=== PATIENT | female | born 2000 | race Caucasian/White ===

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

== ENCOUNTER 2018-07-16 13:42 | Emergency (ER) | payer SELFPAY ==
[~2018-07-16] VITALS: Ht 175.3 cm; Wt 142.4 kg
[~2018-07-16 13:42] MED LIST: CYCL-331 PO
[2018-07-16] MEDS ORDERED: IV NORMAL SALINE 1,000ML 1,000 ML IV SCH (13:58)
[2018-07-16] MEDS ORDERED: IBUPROFEN 800 MG TABLET. PO ONE (14:15)
[2018-07-16 14:28] LABS: BASO # 0.1 x10^3/uL (0.0-0.2); BASO % 1 % (0-3); EOS # 0.1 x10^3/uL (0.0-0.7); EOS % 1 % (0-3); HEMATOCRIT 40.7 % (36.0-47.0); HEMOGLOBIN 13.9 g/dL (12.0-15.5); LYMPH # 0.6 x10^3/uL (1.0-4.8); LYMPH % 5 % (24-48); MEAN CORPUSCULAR HEMOGLOBIN 30 pg (25-35); MEAN CORPUSCULAR HGB CONC 34 g/dL (31-37); MEAN CORPUSCULAR VOLUME 88 fL (79-100); MONO # 0.8 x10^3/uL (0.0-1.1); MONO % 7 % (0-9); NEUT % 87 % (31-73); PLATELET COUNT 296 x10^3/uL (140-400); RED BLOOD COUNT 4.65 x10^6/uL (3.50-5.40); RED CELL DISTRIBUTION WIDTH 12.9 % (11.5-14.5); WHITE BLOOD COUNT 12.6 x10^3/uL (4.0-11.0)
--- NOTE | 2018-07-16 14:29 | RAD ---
CHEST PA LATERAL Technique: PA and lateral views of the chest were obtained. Clinical History: SHORT OF BREATH, HX OF ASTHMA, PT SHIELDED Comparison: None. Findings: The heart and pulmonary vessels appear normal. There is low lung volumes causing crowding of pulmonary vasculature. Linear opacities in the left lung base. Impression: Low lung volumes. Left lower lobe infiltrate could be discoid atelectasis or early pneumonia. Electronically signed by: Sunil Faria III, MD (07/16/2018 2:26 PM) [facility]
[2018-07-16] MEDS ORDERED: IV NORMAL SALINE 1,000ML 1,000 ML IV ONE ×2 (14:45)
[2018-07-16] MEDS ORDERED: IV NORMAL SALINE 50ML 50 ML ONE (14:51)
[2018-07-16] MEDS ORDERED: cefTRIAXone SODIUM 1 GM VIAL ONE (14:52)
[2018-07-16 14:53] LABS: INFLUENZA A PATIENT POSITIVE (NEGATIVE); INFLUENZA B PATIENT NEGATIVE (NEGATIVE)
[2018-07-16 15:17] LABS: ALBUMIN 3.3 g/dL (3.4-5.0); ALBUMIN/GLOBULIN RATIO 0.9 (1.0-1.7); CALCIUM 8.2 mg/dL (8.5-10.1); GFR 71.4; POTASSIUM 3.6 mmol/L (3.5-5.1); TOTAL BILIRUBIN 0.7 mg/dL (0.2-1.0); TOTAL PROTEIN 7.1 g/dL (6.4-8.2)
[2018-07-16] MEDS ORDERED: KETOROLAC 30 MG/ML VIAL. IV ONE (15:30)
[2018-07-16] MEDS ORDERED: OSELTAMIVIR 75 MG CAPSULE PO ONE (15:30)
[2018-07-16 16:19] VITALS: BP 100/47
[2018-07-16] MEDS ORDERED: HYDR115S2 PO (16:21)
[2018-07-16] MEDS ORDERED: OSEL75CA PO (16:21)
--- NOTE | 2018-07-16 16:22 | PHYS DOC ---
Past History Past Medical History: Asthma Past Surgical History: No Surgical History Smoking: Non-smoker Alcohol Use: None Drug Use: None Adult General Chief Complaint Chief Complaint: SHORTNESS OF BREATH HPI HPI Patient is a 17 year old female with history of asthma who presents with feeling of fever and shortness of breath. Patient states she had marked cough and generalized weakness yesterday and since this morning had shortness of breath with nonproductive cough and fever as high as 103. Patient complaining of nasal congestion and sore throat and generalized myalgia. Patient denies sick contact. Review of Systems Review of Systems Constitutional: Reports fever and chills Eyes: Denies change in visual acuity, redness, or eye pain [] HENT: Reports nasal congestion and sore throat Respiratory: Reports cough and shortness of breath] Cardiovascular: No additional information not addressed in HPI [] GI: Denies abdominal pain, nausea, vomiting, bloody stools or diarrhea [] : Denies dysuria or hematuria [] Musculoskeletal: Denies back pain or joint pain [] Integument: Denies rash or skin lesions [] Neurologic: Denies headache, focal weakness or sensory changes [] Endocrine: Denies polyuria or polydipsia [] All other systems were reviewed and found to be within normal limits, except as documented in this note. Current Medications Current Medications Current Medications Medications (Trade) Dose Ordered Sig/Blanca Start Time Stop Time Status Last Admin Dose Admin Ceftriaxone Sodium 1 gm/ Sodium Chloride 50 ml @ 100 mls/hr 1X ONCE 07/16/18 15:00 07/16/18 15:01 DC Ceftriaxone Sodium (Rocephin) 1 gm STK-MED ONCE 07/16/18 14:52 07/16/18 15:02 DC Ibuprofen (Motrin) 800 mg 1X ONCE 07/16/18 14:15 07/16/18 14:16 DC 07/16/18 14:24 800 MG Ketorolac Tromethamine (Toradol 30mg Vial) 30 mg 1X ONCE 07/16/18 15:30 07/16/18 15:31 DC 07/16/18 15:26 30 MG Oseltamivir Phosphate (Tamiflu) 75 mg 1X ONCE 07/16/18 15:30 07/16/18 15:31 DC 07/16/18 15:25 75 MG Sodium Chloride 50 ml @ As Directed STK-MED ONCE 07/16/18 14:51 07/16/18 14:52 DC Allergies Allergies Allergies Coded Allergies Type Severity Reaction Last Updated Verified No Known Drug Allergies 03/15/17 No Physical Exam Physical Exam Constitutional: Well developed, well nourished, moderate distress, non-toxic appearance. [] HENT: Normocephalic, atraumatic, bilateral external ears normal, oropharynx dry , pharyngeal erythema no oral exudates, nose normal. [] Eyes: PERRLA, EOMI, conjunctiva normal, no discharge. [] Neck: Normal range of motion, no tenderness, supple, no stridor. [] Cardiovascular: Tachycardia ,no murmur [] Lungs & Thorax: Marked respiratory distress with tachypnea and marked wheezing bilaterally Abdomen: Bowel sounds normal, soft, no tenderness, no masses, no pulsatile masses. [] Skin: Warm, dry, no erythema, no rash. [] Back: No tenderness, no CVA tenderness. [] Extremities: No tenderness, no cyanosis, no clubbing, ROM intact, no edema. [] Neurologic: Alert and oriented X 3, normal motor function, normal sensory function, no focal deficits noted. [] Psychologic: Affect normal, judgement normal, mood normal. [] Current Patient Data Vital Signs Vital Signs Date Time Temp Pulse Resp B/P (MAP) Pulse Ox O2 Delivery O2 Flow Rate FiO2 07/16/18 15:48 110 16 101/58 (72) 98 Nasal Cannula 3.0 07/16/18 14:48 100.9 Lab Results Laboratory Tests Test 07/16/18 13:58 07/16/18 14:27 07/16/18 14:42 White Blood Count 12.6 x10^3/uL (4.0-11.0) H Red Blood Count 4.65 x10^6/uL (3.50-5.40) Hemoglobin 13.9 g/dL (12.0-15.5) Hematocrit 40.7 % (36.0-47.0) Mean Corpuscular Volume 88 fL (79-100) Mean Corpuscular Hemoglobin 30 pg (25-35) Mean Corpuscular Hemoglobin Concent 34 g/dL (31-37) Red Cell Distribution Width 12.9 % (11.5-14.5) Platelet Count 296 x10^3/uL (140-400) Neutrophils (%) (Auto) 87 % (31-73) H Lymphocytes (%) (Auto) 5 % (24-48) L Monocytes (%) (Auto) 7 % (0-9) Eosinophils (%) (Auto) 1 % (0-3) Basophils (%) (Auto) 1 % (0-3) Neutrophils # (Auto) 11.0 x10^3uL (1.8-7.7) H Lymphocytes # (Auto) 0.6 x10^3/uL (1.0-4.8) L Monocytes # (Auto) 0.8 x10^3/uL (0.0-1.1) Eosinophils # (Auto) 0.1 x10^3/uL (0.0-0.7) Basophils # (Auto) 0.1 x10^3/uL (0.0-0.2) Lactic Acid Level 2.1 mmol/L (0.4-2.0) H Influenza Type A (Rapid) Positive (NEGATIVE) Influenza Type B (Rapid) Negative (NEGATIVE) Sodium Level 137 mmol/L (136-145) Potassium Level 3.6 mmol/L (3.5-5.1) Chloride Level 103 mmol/L (98-107) Carbon Dioxide Level 22 mmol/L (21-32) Anion Gap 12 (6-14) Blood Urea Nitrogen 19 mg/dL (7-20) Creatinine 1.0 mg/dL (0.6-1.0) Estimated GFR (Cockcroft-Gault) 71.4 BUN/Creatinine Ratio 19 (6-20) Glucose Level 116 mg/dL (70-99) H Calcium Level 8.2 mg/dL (8.5-10.1) L Total Bilirubin 0.7 mg/dL (0.2-1.0) Aspartate Amino Transferase (AST) 18 U/L (15-37) Alanine Aminotransferase (ALT) 33 U/L (14-59) Alkaline Phosphatase 66 U/L (46-116) Total Protein 7.1 g/dL (6.4-8.2) Albumin 3.3 g/dL (3.4-5.0) L Albumin/Globulin Ratio 0.9 (1.0-1.7) L EKG EKG Chief interpreted by me. EKG at 1353 showed sinus tachycardia at rate of 152, no acute ST-T wave abnormalities. Radiology/Procedures Radiology/Procedures [address] [id number] IMAGING REPORT Signed PATIENT: RICHAR SANTOS ACCOUNT: [id number] : 2000 LOCATION: ER AGE: 17 SEX: F EXAM STATUS: PRE ER ORD. PHYSICIAN: TONJA JOHNSON MD REASON: shortness of breath PROCEDURE: CHEST PA & LATERAL CHEST PA LATERAL Technique: PA and lateral views of the chest were obtained. Clinical History: SHORT OF BREATH, HX OF ASTHMA, PT SHIELDED Comparison: None. Findings: The heart and pulmonary vessels appear normal. There is low lung volumes causing crowding of pulmonary vasculature. Linear opacities in the left lung base. Impression: Low lung volumes. Left lower lobe infiltrate could be discoid atelectasis or early pneumonia. Electronically signed by: Greta Ramirez III, MD (07/16/2018 2:26 PM) [facility] DICTATED AND SIGNED BY: GRETA RAMIREZ III, MD DATE: 07/16/18 [id number] CC: TONJA JOHNSON MD; PCP,NO ~ Course & Med Decision Making Course & Med Decision Making Pertinent Labs and Imaging studies reviewed. (See chart for details) Evaluation of patient in ER showed 17-year-old female patient presented with fever and shortness of breath and sinus tachycardia at 160s. Patient had positive Flu A. patient was treated with IV fluid, Tamiflu, ibuprofen with improvement of tachycardia and fever. Patient had mild elevation of lactic acid at 2.1 related to fever and tachycardia and flu symptoms. Chest x-ray was concern for atelectasis or early pneumonia but because of positive flu antibiotic except for Tamiflu was not given. Patient felt better and ambulated without problem and instructed to follow-up with her primary care physician. Dragon Disclaimer Dragon Disclaimer This electronic medical record was generated, in whole or in part, using a voice recognition dictation system. Departure Departure: Impression: Primary Impression: Influenza A Additional Impressions: Shortness of breath Fever Sinus tachycardia History of asthma Elevated lactic acid level Disposition: HOME, SELF-CARE (at 1618) Condition: IMPROVED Referrals: PCP,NO (PCP) Patient Instructions: Asthma Attacks, Prevention, Fever, Adult, Influenza A ( H1N1), Shortness of Breath Additional Instructions: Drink plenty of liquids Follow-up with your primary care physician in 3-5 days Return to ER if not getting better Alternate Tylenol and ibuprofen every 4 hours for fever and pain Scripts Oseltamivir Phosphate (TAMIFLU) 75 Mg Capsule 1 CAP PO BID for influenza, #10 CAP Prov: TONJA JOHNSON MD 07/16/18 Hydrocodone/Chlorphen P-Stirex (Tussionex Pennkinetic Susp) 115 Ml Gladis.er.12h 5 ML PO BID for cough and congestion, #120 ML Prov: TONJA JOHNSON MD 07/16/18 Critical Care Time Critical care time was 80 minutes exclusive of procedures. Problem Qualifiers Additional Impressions: Fever Fever type: unspecified Qualified Codes: R50.9 - Fever, unspecified TONJA JOHNSON MD Jul 16, 2018 16:22
--- NOTE | 2018-07-19 12:19 | EKG ---
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
== END 2018-07-16 16:35 | disposition home or self-care (01) ==
LOC: ER 13:42
DX: J10.1 Influenza due to other identified influenza virus with other respiratory manifestations (principal); R00.0 Tachycardia, unspecified; J45.909 Unspecified asthma, uncomplicated; R74.0 Nonspecific elevation of levels of transaminase and lactic acid dehydrogenase [LDH]
CPT/HCPCS: 36415; 71046; 80053; 83605; 85025; 87040; 87804; 93005; 96374; 99284; J1885; J0696; J7030